=== PATIENT | male | born 1955 ===

== ENCOUNTER 2018-10-09 10:54 | Observation (INO) | payer OTHER | END 2018-10-10 14:46 | disposition home or self-care (01) | LOC: C.ER 10:54 → C.9E 15:57 → C.3T 18:47 | DX: R42 Dizziness and giddiness (principal); I10 Essential (primary) hypertension; H91.90 Unspecified hearing loss, unspecified ear; N40.0 Benign prostatic hyperplasia without lower urinary tract symptoms; Z80.3 Family history of malignant neoplasm of breast; Z82.3 Family history of stroke; Z82.49 Family history of ischemic heart disease and other diseases of the circulatory system ==